=== PATIENT | female | born 1985 | race Two or more races ===

== ENCOUNTER 2024-10-18 15:15 | Emergency (ER) | payer OTHER ==
[~2024-10-18] VITALS: Ht 167.6 cm; Wt 72.1 kg
[2024-10-18 15:37] VITALS: BP 102/65; O2SAT 99
[2024-10-18] MEDS ORDERED: FAMOTIDINE/PF 20 MG in 0.9 % SODIUM CHLORIDE 8 ML IV PUSH STA (16:30)
[2024-10-18] MEDS ORDERED: ONDANSETRON HCL 2 MG/ML VIAL IV ONE (16:30)
[2024-10-18] MEDS ORDERED: ONDANSETRON HCL 2 MG/ML VIAL ONE (16:49)
[2024-10-18] MEDS ORDERED: FAMOTIDINE/PF 20 MG/2 ML VIAL ONE (16:49)
[2024-10-18 17:12] LABS: HEMATOCRIT 42.6 % (36.0-45.00); HEMOGLOBIN 14.7 g/dL (12.0-15.00); MEAN CELL VOLUME 94.1 fL (80.00-100.00); MEAN CORPUSCULAR HEMOGLOBIN 32.5 pg (27.00-32.0); MEAN CORPUSCULAR HGB CONC 34.5 g/dl (32.0-36.0); PLATELET COUNT 270 K/uL (150-450); RED BLOOD COUNT 4.53 M/uL (4.00-6.00); RED CELL DISTRIBUTION WIDTH 12.9 % (11.5-14.5)
[2024-10-18 17:30] LABS: ALBUMIN 4.2 gm/dL (3.4-5.0); BILIRUBIN TOTAL 0.4 mg/dL (0.3-1.2); BILIRUBIN,CONJUGATED 0.14 mg/dL (0.0-0.2); BILIRUBIN,UNCONJUGATED 0.26 mg/dL (0.0-0.6); CALCIUM 9.1 mg/dL (8.5-10.1); CREATININE SERUM 0.68 mg/dL (0.55-1.02); GFR 96.83; GLOBULINA 3.6 G/DL (2.4-3.5); POTASSIUM 3.86 mEq/L (3.5-5.1); TOTAL PROTEIN 7.8 gm/dL (6.4-8.2)
[2024-10-18] MEDS ORDERED: CEFTRIAXONE SODIUM 2,000 MG VIAL ONE (19:35)
[2024-10-18] MEDS ORDERED: 0.9 % SODIUM CHLORIDE 1,000 ML IV SCH (19:45)
[2024-10-18] MEDS ORDERED: CEFTRIAXONE SODIUM 2,000 MG VIAL IV ONE (19:45)
[2024-10-18 19:53] LABS: URINE APPEARANCE Clear; URINE BILIRRUBIN Negative (NEGATIVE); URINE BLOOD Negative; URINE COLOR Yellow; URINE GLUCOSE Negative (NEGATIVE); URINE KETONE Negative (NEGATIVE); URINE LEUKOCYTE Negative; URINE NITRATE Negative; URINE PROTEIN Negative (NEGATIVE); URINE UROBILINOGEN 0.2 E.U./dl
[2024-10-18 19:58] LABS: URINE BACTERIA 428.3 uL (0.0-1933); URINE EPITHELIAL CELLS 15.3 uL (0.0-38.8); URINE RBC 2.7 uL (0.0-20.8); URINE WBC 11.3 uL (0.0-23.2)
[2024-10-18] MEDS ORDERED: DICLOFENAC SODI75 MG PO (22:15)
== END 2024-10-18 22:27 | disposition home or self-care (01) ==
LOC: ER 15:17
PROVIDERS: General Practice
DX: N83.292 Other ovarian cyst, left side (principal); R10.13 Epigastric pain; K29.70 Gastritis, unspecified, without bleeding

== ENCOUNTER 2024-11-30 07:03 | Outpatient (CLI) | payer OTHER ==
[~2024-11-30 07:03] MED LIST: DICLOFENAC SODI75 MG PO
== END 2024-11-30 07:11 | disposition home or self-care (01) ==
LOC: TOM 07:03
PROVIDERS: ATTEND Internal Medicine
DX: R10.10 Upper abdominal pain, unspecified (principal); E02 Subclinical iodine-deficiency hypothyroidism; D51.3 Other dietary vitamin B12 deficiency anemia; E83.42 Hypomagnesemia; E16.1 Other hypoglycemia; E55.9 Vitamin D deficiency, unspecified; E78.1 Pure hyperglyceridemia